=== PATIENT | male | born 1960 | race Caucasian/White ===

== ENCOUNTER → 2024-06-26 14:45 | Outpatient (REF) | payer BC, SELFPAY | LOC: HWRAD 14:45 | PROVIDERS: ATTENDING PHYSICIAN Specialist; FAMILY PHYSICIAN Family Medicine | DX: R80.1 Persistent proteinuria, unspecified (principal) | CPT/HCPCS: 76770 ==

== ENCOUNTER 2024-08-05 18:02 | Inpatient (IN) | payer BC, SELFPAY ==
[2024-08-05] VITALS (11 sets, daily range): BP systolic 147–212; BP diastolic 78–125; BMI 37.3
--- NOTE | 2024-08-05 13:56 | ED.GENMED ---
History of Present Illness
<Suzan Gar PA-C - Last Filed: 08/05/24 16:54>
General
Chief Complaint: Abdominal Symptoms
Source: patient and family
Exam Limitations: clinical condition
Time Seen by Provider: 08/05/24 13:26
Nursing documentation reviewed up to this point in time: agreed with
History of Present Illness
History of Present Illness:
pt is a 64 y/o M with h/o HTN, CAD with stent, IDDM
hiatal hernia
here iwth n/v x 8-10 episodes today
with epigastirc and ches tpain as well
he also had some loose stool but much less than vomitign episodes
noticed red blood spattering in the toilet
not large volume
pt says he doesn't know where it came from
he has not had any syncope, fever, chills
pt called his PCP and was told he could try zofran which he did but he was still vomiting so he came in
he had hospitalization in 2019 for similar complaint
had endoscopy which showed hital hernia without varices
pt didn't take his BP meds
Past History
<Suzan Gar PA-C - Last Filed: 08/05/24 16:54>
Past History
ED Past Medical History: CAD (1 stent '06), HTN, Hypercholesterolemia, IDDM (last A1c 11+ in 2019) and [place]
ED Past Surgical History: Cardiac (stent)
Social History
Tobacco: Non-smoker
Personal:
Living: with family
Review of Systems
<Suzan Gar PA-C - Last Filed: 08/05/24 16:54>
Review of Systems
Allergies reviewed?: Yes
All Other Systems: Not applicable
Phy Exam
<GRANT Escobedo Last Filed: 08/05/24 16:54>
Physical Exam
Physical Exam:
GENERAL: Alert , ill appearing, dry heaving
EYE: pupils equal and reactive
NECK: Supple
ENT: o/p clr, mmm.
CARDIAC: Regular rate and rhythm .
LUNGS: Clear breath sounds bilaterally, no acute respiratory distress, no wheezes/rales/rhonchi
ABDOMEN: Soft, without focal tenderness, no r/g, no cvat, normal bowel sounds
NEUROLOGICAL: Alert and oriented, no focal neuro deficits
SKIN: Warm and dry, skin intact.
purplish discoloration to face;
MUSCULOSKELETAL: No edema, well perfused. neg stuart's sign
PSYCH: Normal and appropriate interaction.
Course
<Suzan Gar PA-C - Last Filed: 08/05/24 16:54>
Orders/Labs/Results
Orders:
Orders
08/05/24 13:10
EKG [Electrocardiogram (*1)] Stat
Reason for Study: Abdominal Pain
08/05/24 13:11
EKG- Treatment ONCE
08/05/24 13:48
Ondansetron Injectable [Zofran] 4 mg IV NOW STA
08/05/24 13:49
Ondansetron Injectable [Zofran] 4 mg .ROUTE .STK-MED ONE
Pantoprazole [Protonix IV] 40 mg IV NOW STA
08/05/24 13:50
Cardiac Monitoring- Treatment ONCE
08/05/24 14:04
Diphenhydramine [Benadryl] 25 mg IV NOW STA
Metoclopramide [Reglan] 10 mg IV NOW STA
CR Chest Portable - 1 View Urgent
Comment:
Reason For Exam: vomiting, epgiastric pain
Reason Study Needs to be Portable: Unable to Transport
08/05/24 14:11
Complete Blood Count/With Diff Urgent
Comprehensive Metabolic Panel Urgent
Lipase Urgent
Troponin I Urgent
08/05/24 14:49
CT Abd/Pel (IV only)-DH only Urgent
Comment:
Reason For Exam: vomiting, epigstri pain, eval pancreatitis
08/05/24 15:45
Ondansetron Injectable [Zofran] 4 mg IV NOW STA
08/05/24 16:07
Lorazepam [Ativan] 1 mg IV NOW STA
08/05/24 16:49
Labetalol HCl [Trandate] 10 mg IV NOW STA
08/05/24 17:10
0.9% Sodium Chloride 1000 ml [Nss] 1,000 ml IV BOLUS
08/05/24 17:33
Admit/Transfer Patient As Directed
Co-Sign Provider:
Level of Care: Inpatient admission
Assign to:: Telemetry
Physician / Group: uriel
Diagnosis: Gastritis
Reason for Telemetry: Arrhythmia
Date to Stop Telemetry: 08/08/24
Time to Stop Telemetry: 11:00
Reason for Hospitalization: Gastritis/hematemesis
Expected length of stay greater than two midnights?: Yes
ELOS- Estimated Length of Stay in days: 2
I certify the patient meets the requirements for IP care: Yes
PRN Pain Medication Management As Directed
May give lesser potent ordered pain med per pt: Yes
preference::
Protocol:: Medication orders for pain may be administered in a
manner that supports deferring to patient preference
when the pt is:
- Requesting an ordered lesser potent pain medication.
Least to most potent pain medications are defined
as: acetaminophen < NSAID < tramadol < opioids
(morphine, oxycodone, hydromorphone).
- Requesting a lesser dose of the same medication IF
ORDERED.
- Requesting a less intrusive route of administration
if both routes are prescribed by the provider (PO <
IV).
08/05/24 17:34
Code Status As Directed
Resuscitation Status: Full Code
08/08/24 11:00
DC Protocol for Telemetry ONCE
Abnormal Lab Results
08/05/24
14:11
Absolute Neuts (auto) 7.2 H 10^3/uL
(1.4-6.5)
Absolute Lymphs (auto) 1.0 L 10^3/uL
(1.2-3.4)
Neutrophils % 84.8 H %
(42.2-75.2)
Lymphocytes % 11.8 L %
(20.5-51.1)
BUN 26 H mg/dl
(9-20)
Glucose 242 H mg/dl
(70-99)
Calcium 10.4 H mg/dl
(8.4-10.2)
ALT 66 H U/L
(0-50)
Lipase 342 H U/L
(23-300)
08/05/24 14:11
08/05/24 14:11
Vital Signs
Blood pressure: 168/113
Initial and Last Documented VS:
Initial Vital Signs
Temp Pulse Resp BP Pulse Ox
97.7 F 93 18 212/125 100
08/05/24 13:20 08/05/24 13:20 08/05/24 13:20 08/05/24 13:20 08/05/24 13:20
Last Documented Vital Signs
Temp Pulse Resp BP Pulse Ox
97.7 F 106 25 206/102 92
08/05/24 13:20 08/05/24 17:30 08/05/24 17:30 08/05/24 17:00 08/05/24 17:30
<Binh Aragon, DO - Last Filed: 08/05/24 17:42>
Orders/Labs/Results
Orders:
Orders
08/05/24 13:10
EKG [Electrocardiogram (*1)] Stat
Reason for Study: Abdominal Pain
08/05/24 13:11
EKG- Treatment ONCE
08/05/24 13:48
Ondansetron Injectable [Zofran] 4 mg IV NOW STA
08/05/24 13:49
Ondansetron Injectable [Zofran] 4 mg .ROUTE .STK-MED ONE
Pantoprazole [Protonix IV] 40 mg IV NOW STA
08/05/24 13:50
Cardiac Monitoring- Treatment ONCE
08/05/24 14:04
Diphenhydramine [Benadryl] 25 mg IV NOW STA
Metoclopramide [Reglan] 10 mg IV NOW STA
CR Chest Portable - 1 View Urgent
Comment:
Reason For Exam: vomiting, epgiastric pain
Reason Study Needs to be Portable: Unable to Transport
08/05/24 14:11
Complete Blood Count/With Diff Urgent
Comprehensive Metabolic Panel Urgent
Lipase Urgent
Troponin I Urgent
08/05/24 14:49
CT Abd/Pel (IV only)-DH only Urgent
Comment:
Reason For Exam: vomiting, epigstri pain, eval pancreatitis
08/05/24 15:45
Ondansetron Injectable [Zofran] 4 mg IV NOW STA
08/05/24 16:07
Lorazepam [Ativan] 1 mg IV NOW STA
08/05/24 16:49
Labetalol HCl [Trandate] 10 mg IV NOW STA
08/05/24 17:10
0.9% Sodium Chloride 1000 ml [Nss] 1,000 ml IV BOLUS
08/05/24 17:33
Admit/Transfer Patient As Directed
Co-Sign Provider:
Level of Care: Inpatient admission
Assign to:: Telemetry
Physician / Group: veldanda
Diagnosis: Gastritis
Reason for Telemetry: Arrhythmia
Date to Stop Telemetry: 08/08/24
Time to Stop Telemetry: 11:00
Reason for Hospitalization: Gastritis/hematemesis
Expected length of stay greater than two midnights?: Yes
ELOS- Estimated Length of Stay in days: 2
I certify the patient meets the requirements for IP care: Yes
PRN Pain Medication Management As Directed
May give lesser potent ordered pain med per pt: Yes
preference::
Protocol:: Medication orders for pain may be administered in a
manner that supports deferring to patient preference
when the pt is:
- Requesting an ordered lesser potent pain medication.
Least to most potent pain medications are defined
as: acetaminophen < NSAID < tramadol < opioids
(morphine, oxycodone, hydromorphone).
- Requesting a lesser dose of the same medication IF
ORDERED.
- Requesting a less intrusive route of administration
if both routes are prescribed by the provider (PO <
IV).
08/05/24 17:34
Code Status As Directed
Resuscitation Status: Full Code
08/08/24 11:00
DC Protocol for Telemetry ONCE
Abnormal Lab Results
08/05/24
14:11
Absolute Neuts (auto) 7.2 H 10^3/uL
(1.4-6.5)
Absolute Lymphs (auto) 1.0 L 10^3/uL
(1.2-3.4)
Neutrophils % 84.8 H %
(42.2-75.2)
Lymphocytes % 11.8 L %
(20.5-51.1)
BUN 26 H mg/dl
(9-20)
Glucose 242 H mg/dl
(70-99)
Calcium 10.4 H mg/dl
(8.4-10.2)
ALT 66 H U/L
(0-50)
Lipase 342 H U/L
(23-300)
08/05/24 14:11
08/05/24 14:11
Vital Signs
Initial and Last Documented VS:
Initial Vital Signs
Temp Pulse Resp BP Pulse Ox
97.7 F 93 18 212/125 100
08/05/24 13:20 08/05/24 13:20 08/05/24 13:20 08/05/24 13:20 08/05/24 13:20
Last Documented Vital Signs
Temp Pulse Resp BP Pulse Ox
97.7 F 106 25 206/102 92
08/05/24 13:20 08/05/24 17:30 08/05/24 17:30 08/05/24 17:00 08/05/24 17:30
<Suzan Gar PA-C - Last Filed: 08/05/24 16:54>
MDM/Problems Addressed
Differential Diagnosis Includes:
hyperemesis, alcohol withdrawal, gastrtitis, PUD, varices, dissection, pancreaitits
MDM/Problems Addressed:
64 y/o M with h/o previous hyperemesis episode 2019 here with n/v/d that started 6 am this morning
mostly vomiting, minimal diarrhea
may hav ehad some blood in the toilet, says, pt says he doesn't know
he castaneda had epigastric pain and ches tpain but wasn't sure if it was just from vomiting all day
had zofran at home and tried it without relief
pt has never had PUD, varices
he smokes marijuana but not daily
hypertensive but actively vomiting most of the time his BP is being taken
ekg nonischemic
abimael by ed attending
did not feel this was dissection; psimilar admission 2019 and they alos w/u with CTA dissection which was neg; ultimately ended up bieing vomiting related to gastropareiss vs cannabis;
pt persistently vomits despite multiple rounds meds here
continues to be hypertensive
will now treat bp with labetalol
lipase elevated
pending CT
<Suzan Gar PA-C - Last Filed: 08/05/24 16:54>
*Critical Care Note
Total Time (30-74mins, 75-104mins- exclusive of procedures): Not Applicable
ED Attending Note
<Suzan Gar PA-C - Last Filed: 08/05/24 16:54>
-
Portions of this chart may have been created with voice recognition software.� Occasional wrong word or��sound alike� substitutions may have occurred due to the inherent limitations of voice recognition software.
<Binh Aragon DO - Last Filed: 08/05/24 17:42>
ED Attending Note
Patient seen and examined by attending physician: Yes
I performed the substantive portion of visit, reviewed & personally made and approve the management plan that is documented in note by myself or LAURA.: Yes
ED Attending Note:
64-year-old male who presents with epigastric abdominal pain and vomiting. Has had a similar complaint and presentation some years ago. On my evaluation patient is vomiting. Found to be hypertensive as well. Exam: Bilious vomiting noted during
exam. Mild epigastric tenderness. No respiratory distress. Assessment plan: Check labs, CT, treat with antiemetics and reassess
Discharge Plan
Departure
Patient Disposition: Admit
Date of Disposition: 08/05/24
Time of Disposition: 16:50
Admit to: Telemetry
Presentation/result/management discussed w/ accepting MD/DO: Hospitalist
Condition: Fair
Covid-19: Not Applicable
Discharge Problem:
Hypertensive urgency, Vomiting, Gastritis
Prescriptions:
No Action
aspirin 325 MG tablet,delayed release (DR/EC)
325 mg PO DAILY
Patient Comments:
takes ecotrin
metformin 1,000 MG tablet
1,000 mg PO BID
Patient Comments:
NOTEtoday 06/02/2013 --pt had ct with iv dye---will need to hold for 2 days
rosuvastatin 20 MG tablet
20 mg PO DAILY
lisinopril 40 MG tablet
40 mg PO DAILY Qty: 30 0RF
insulin detemir U-100 [Levemir FlexTouch U100 Insulin] 300 UNIT/3 ML insulin pen
42 unit SC BID Qty: 30 0RF
amlodipine 10 MG tablet
10 mg PO DAILY Qty: 30 0RF
pantoprazole 40 MG tablet,delayed release (DR/EC)
40 mg PO DAILY Qty: 30 0RF
Referrals:
Edgardo Power DO [Family Provider] -
Interventions
Interventions:
*Risk Screen - Suicide Last Done: 08/05/24 13:20
*General Assessment Last Done: 08/05/24 13:20
*Neglect/Abuse Screening Last Done: 08/05/24 13:20
ED- Fall Risk Assessment Last Done: 08/05/24 14:30
*ED COVID-19 Vaccine History Last Done: 08/05/24 14:29
MS-Gdldxr-Rzqbvzegyf Assessment Last Done: 08/05/24 14:30
Discharge Date and Time
Print Language: MALAGASY
[2024-08-05] MEDS: BENADRYL 25 MG IV (14:09)
[2024-08-05] MEDS: PROTONIX IV 40 MG IV ×2 (14:10→20:47)
[2024-08-05] MEDS: REGLAN 10 MG IV ×2 (14:10→20:03)
[2024-08-05 14:25] LABS: % Basophils 0.4 % (0-2); % Eosinophils 0.1 % (0-6); % Immature Granulocytes 0.4 % (0-0.5); % Lymphocytes 11.8 % (20.5-51.1); % Monocytes 2.5 % (1.7-9.3); % Neutrophils 84.8 % (42.2-75.2); Absolute Monocytes 0.2 10^3/uL (0.1-0.6); Absolute Neutrophils 7.2 10^3/uL (1.4-6.5); Hematocrit 43.9 % (39.0-52.0); Hemoglobin 14.9 g/dL (13.0-18.0); Mean Corp Hgb Conc. 33.9 g/dL (33.0-37.0); Mean Corpuscular Hgb 30.2 pg (27.0-31.0); Mean Platelet Volume 10.3 fL (7.4-10.4); Nucleated Red Blood Cells % 0 % (-); Platelet Count 214 10^3/uL (130-400); Red Blood Cell Count 4.93 10^6/uL (4.70-6.10); Red Cell Dist. Width 12.6 % (11.5-14.5); White Blood Cell Count 8.4 10^3/uL (4.8-10.8)
[2024-08-05 14:38] LABS: ALT (SGPT) 66 U/L (0-50); AST (SGOT) 47 U/L (17-59); Albumin 4.7 g/dl (3.5-5.0); Alkaline Phosphatase 51 U/L (38-126); Blood Urea Nitrogen 26 mg/dl (9-20); Calcium 10.4 mg/dl (8.4-10.2); Carbon Dioxide 23 mmol/L (22-30); Chloride 103 mmol/L (98-107); Estimated Creatinine Clearance > 125 ml/min; Glucose 242 mg/dl (70-99); Lipase 342 U/L (23-300); Potassium 4.8 mmol/L (3.5-5.1); Sodium 140 mmol/L (135-145); Total Bilirubin 0.8 mg/dl (0.2-1.3); Total Protein 7.5 g/dl (6.3-8.2); eGFR > 60.00
[2024-08-05 14:53] LABS: Troponin I < 0.012 ng/ml
[2024-08-05] MEDS: ZOFRAN 4 MG IV (15:56)
[2024-08-05] MEDS: ATIVAN 1 MG IV (16:18)
[2024-08-05] MEDS: NSS 1000 IV ×2 (17:13→20:46)
[2024-08-05] MEDS: TRANDATE 10 MG IV (17:13)
--- NOTE | 2024-08-05 17:47 | HPS.HSE ---
Family Physician
-
Family Physician: Edgardo Power
Chief Complaint
-
vomiting
History of Present Illness
64-year-old male past medical history of CAD with stent, hypertension, diabetes, hiatal hernia, presenting with 8-10 episodes of vomiting with nausea today. He has epigastric and chest pain as well. He had diarrhea today. noticed blood in
the toilet she thinks it was probably from the vomit but she is not sure if it is from the diarrhea. Patient was very fatigued today and was huffing as if he was short of breath.
Patient does admit to using marijuana sometimes. He was not able to tell me when he last used.
He denies any dizziness, passing out, fevers or chills.
Patient was admitted in 2019 for intractable vomiting and hiccups. He underwent EGD which was unremarkable and gastric emptying study that was unremarkable.
Medical History
Past Medical History
Past Medical History: Reports Other (CAD with stent, hypertension, diabetes, hiatal hernia)
Past Surgical History: Reports None
Social History
Tobacco: Non-smoker
Alcohol: Occasional
Drug: Marijuana
Family History
Family History: Not pertinent
Allergies / Home Medications
Allergies reflects when Allergies were last updated in [employer].
Home Medications with original date entered in [employer]
Allergy/Medication List:
Allergies
Allergy/AdvReac Type Severity Reaction Status Date / Time
venom-honey bee Allergy STINGS-HIVE Verified 08/05/24 13:19
S
Home Medications
aspirin 325 mg tablet,delayed release 325 mg PO DAILY 06/02/13
metformin 1,000 mg tablet 1,000 mg PO BID 06/02/13
rosuvastatin 20 mg tablet 20 mg PO DAILY 04/06/19
insulin detemir U-100 100 unit/mL (3 mL) subcutaneous pen (Levemir FlexTouch U-100 Insulin) 42 unit (0.42 mL) SC BID ##30 04/08/19
lisinopril 40 mg tablet 40 mg PO DAILY #30 tabs 04/08/19
amlodipine 10 mg tablet 10 mg PO DAILY ##30 04/10/19
pantoprazole 40 mg tablet,delayed release 40 mg PO DAILY ##30 04/10/19
Review of Systems
-
History Source: Patient
A 12 point ROS was completed and negative except as noted: Yes
Constitutional: Reports No Symptoms
EENT: Reports No Symptoms
Respiratory: Reports No Symptoms
Cardiac: Reports No Symptoms
Abdomen/GI: Reports See HPI
: Reports No Symptoms
Musculoskeletal: Reports No Symptoms
Skin: Reports No Symptoms
Neurological: Reports No Symptoms
Endocrine: Reports No Symptoms
Hematologic/Lymphatic: Reports No Symptoms
Psych: Reports No Symptoms
Physical Exam
Vital Signs
Vital Signs
Temp Pulse Resp BP Pulse Ox
97.7 F 106 25 206/102 92
08/05/24 13:20 08/05/24 17:30 08/05/24 17:30 08/05/24 17:00 08/05/24 17:30
Physical Exam
General: Well Developed, Well Nourished and No Apparent Distress
HEENT: NormoCephalic, Moist mucous membranes and Atraumatic
Respiratory: Clear
Cardiac: S1/S2 and Regular Rhythm; No Murmur or Rub
GI: Soft, Non Tender, Non Distended and Normal Bowel Sounds; No Organomegaly
Rectal: Deferred by Provider
Musculoskeletal: No Clubbing, No Cyanosis and No Edema
Skin: No Rash
Neuro: Nonfocal/grossly intact
Laboratory Results
-
08/05/24 14:11
08/05/24 14:11
Laboratory Results
Total Bilirubin 0.8 mg/dl (0.2-1.3) 08/05/24 14:11
AST 47 U/L (17-59) 08/05/24 14:11
ALT 66 U/L (0-50) H 08/05/24 14:11
Alkaline Phosphatase 51 U/L (38-126) 08/05/24 14:11
Troponin I < 0.012 ng/ml 08/05/24 14:11
Lipase 342 U/L (23-300) H 08/05/24 14:11
Data Reviewed
-
Lab Data: Labs Reviewed by me
Old Records: Reviewed
Impression/Plan
-
IMPRESSION:
PLAN:
# Intractable vomiting with likely hematemesis likely Chrystal-Elliott tear from possible underlying marijuana hyperemesis versus gastroparesis versus acute gastritis
# History of hiatal hernia
-Lipase 340
-CT abdomen pelvis shows no acute abnormality
-IV fluids
-Protonix 40 twice daily
-N.p.o.
-Reglan PRN
-jay snot drink alcohol significantly as per
-GI consulted
# Hypertensive urgency
-IV labetalol given
-PRN hydralazine
-Continue lisinopril
-Continue metoprolol
CAD with history of stent
-Continue statin
-Hold aspirin
Essential hypertension
-Continue amlodipine
-Continue lisinopril
Type 2 diabetes
-Reduce Lantus from 40 to 21 units
-Hold metformin
-Insulin sliding scale
Full code
DVT prophylaxis�SCDs
N.p.o.
[2024-08-05] MEDS: APRESOLINE 10 MG IV (19:24)
[2024-08-05 19:34] LABS: Glucose - Point of Care 213 mg/dl (70-99)
[2024-08-05] MEDS: NSS (PRESERVATIVE FREE) 10 ML IV (20:47)
[2024-08-05 21:34] LABS: Glucose - Point of Care 195 mg/dl (70-99)
[2024-08-05] MEDS: LANTUS 0.21 UNITS SC (22:42)
[2024-08-05] MEDS: LOPRESSOR 5 MG IV (23:39)
[2024-08-06] VITALS (9 sets, daily range): BP systolic 118–188; BP diastolic 59–97; BMI 37.3
[2024-08-06] MEDS: ZOFRAN 4 MG IV ×3 (00:51→19:31)
[2024-08-06] MEDS: APRESOLINE 10 MG IV (03:54)
[2024-08-06] MEDS: REGLAN 10 MG IV ×3 (04:01→22:49)
[2024-08-06] MEDS: MORPHINE SULFATE 2 MG IV ×2 (06:18→22:41)
[2024-08-06 07:33] LABS: % Basophils 0.2 % (0-2); % Immature Granulocytes 0.5 % (0-0.5); % Monocytes 6.6 % (1.7-9.3); % Neutrophils 84.7 % (42.2-75.2); Absolute Immature Granulocytes 0.1 10^3/uL (0-0.05); Absolute Lymphocytes 1.1 10^3/uL (1.2-3.4); Absolute Monocytes 0.9 10^3/uL (0.1-0.6); Absolute Neutrophils 11.3 10^3/uL (1.4-6.5); Hematocrit 40.4 % (39.0-52.0); Hemoglobin 13.4 g/dL (13.0-18.0); Mean Corp Hgb Conc. 33.2 g/dL (33.0-37.0); Mean Corpuscular Hgb 30.5 pg (27.0-31.0); Mean Corpuscular Volume 91.8 fL (80.0-94.0); Mean Platelet Volume 10.8 fL (7.4-10.4); Nucleated Red Blood Cells % 0 % (-); Platelet Count 211 10^3/uL (130-400); Red Cell Dist. Width 13.2 % (11.5-14.5); White Blood Cell Count 13.3 10^3/uL (4.8-10.8)
[2024-08-06 08:05] LABS: Glucose - Point of Care 224 mg/dl (70-99)
[2024-08-06 08:06] LABS: ALT (SGPT) 47 U/L (0-50); AST (SGOT) 29 U/L (17-59); Alkaline Phosphatase 41 U/L (38-126); Blood Urea Nitrogen 25 mg/dl (9-20); Calcium 9.2 mg/dl (8.4-10.2); Carbon Dioxide 21 mmol/L (22-30); Chloride 104 mmol/L (98-107); Estimated Creatinine Clearance > 125 ml/min; Glucose 213 mg/dl (70-99); Potassium 3.9 mmol/L (3.5-5.1); Sodium 140 mmol/L (135-145); Total Bilirubin 0.4 mg/dl (0.2-1.3); Total Protein 6.7 g/dl (6.3-8.2); eGFR > 60.00
[2024-08-06] MEDS: LANTUS 0.14 UNITS SC ×2 (08:59→22:42)
[2024-08-06] MEDS: CRESTOR 40 MG PO (09:00)
[2024-08-06] MEDS: PROTONIX IV 40 MG IV ×2 (09:00→19:34)
[2024-08-06] MEDS: NSS (PRESERVATIVE FREE) 10 ML IV ×2 (09:00→19:34)
[2024-08-06] MEDS: NSS 1000 IV (09:04)
[2024-08-06] MEDS: ZESTRIL 40 MG PO (09:09)
[2024-08-06 09:16] LABS: Glycohemoglobin (HgbA1c) 6.7 % (4.0-5.6)
[2024-08-06] MEDS: LANTUS SC (09:18)
--- NOTE | 2024-08-06 10:24 | CON.GI ---
Consultation
-
Date/Time Consultation Requested: 08/05,20:00
Date/Time Consultation Performed: 08/06,10:15
Requesting Provider: Iman Turcios
Performing Provider: Claudia Whiteside
Reason for Consultation: Gastritis
Medical History
Chief Complaint / HPI
Chief Complaint: Nausea and Vomiting-1day
History of Present Illness:
Patient is a 64 year old male with past medical history of Essential hypertension,IDDM,CAD with stent placed in 2005 and hiatal hernia. He regularly drinks two beers a day on most days and his last drink was on Saturday 08/04 and smoked a joint 2
days ago.He was in his usual state of health 2 days ago when he started vomiting repeatedly and was not able to tolerate anything including fluids.He had about 8-10 episodes of non -projectile vomiting,that contained food particles and was yellowish
brown in color with some specks of blood noticed by his .He also had dry heaves.The patient feels it was due to the bad half and half milk that he used for making coffee.He also had a few episodes of loose stools but vomiting was the main
issue.The patient did not notice any melena or fresh blood in stool.He waited for a few hours but he was not tolerating anything and he started to feel a little lightheaded so he came to the emergency department. A CT abd/pelvis done in ER was
within normal limits.
He denies any fever, loss of consciousness, weight loss, appetite changes,travel history, dine out, previous liver or stomach issues,use of any NSAIDS and anticoagulants. He is on chronic aspirin 325 mg daily for his coronary artery disease.
He did not use any painkillers, Pepcid, antacid, omeprazole to treat the pain.
He had similar signs and symptoms in the past, and endoscopy was done in 2019 and he was diagnosed with a hiatal hernia. He has diabetes and did undergo gastric emptying scan in 2019 which also came back normal. He did not had his screening
colonoscopy and he denies any liver or stomach issues before this.
He used to smoke 1 pack of cigarettes for 20-25 years and quit in 2005 after he had the stent placement for coronary artery disease, he drinks 2 beers on most days and his last drink was 2 days ago, he smokes marijuana and he smoked a joint 2 days
ago.
Note; patient had a blood pressure of 206/102 at the time of presentation in the emergency. He is on lisinopril and amlodipine at home which he says he takes regularly but does not monitor his blood pressure.
Patient's blood pressure managed with labetalol 10 mg IV 6 hourly as needed and lisinopril 40 mg daily.
Past Medical History
Past Medical History: CAD (Stent placed in 2005), HTN, Hypercholesterolemia, IDDM and Other (hiatal hernia)
Social History
Tobacco: Former Smoker (Smoked 20-25 years, quit in 2005)
Alcohol: Daily (On most days 2 beers)
Drug: Marijuana (Smoked a joint 2 days ago)
Personal:
Living: With Family
Family History
Family History: Reviewed & Not Pertinent
Allergies / Home Medications
Allergy/AdvReac Type Severity Reaction Status Date / Time
venom-honey bee Allergy STINGS-HIVE Verified 08/05/24 13:19
S
�Medication �Instructions �Recorded
aspirin 325 mg tablet,delayed 325 mg PO DAILY 06/02/13
release
metformin 1,000 mg tablet 1,000 mg PO BID 06/02/13
rosuvastatin 20 mg tablet 40 mg PO DAILY 04/06/19
insulin detemir U-100 100 unit/mL 42 unit (0.42 mL) SC BID ##30 04/08/19
(3 mL) subcutaneous pen (Levemir
FlexTouch U-100 Insulin)
lisinopril 40 mg tablet 40 mg PO DAILY #30 tabs 04/08/19
Humalog Pen 1 dose SC AC 08/05/24
Mounjaro 7.5 mg SC WEEKLY 08/05/24
ezetimibe 10 mg PO DAILY 08/05/24
Review of Systems
-
All other systems: A 12 pt ROS was Negative except as stated above in HPI
Vital Signs
Temp Pulse Resp BP Pulse Ox
99.0 F 103 16 159/81 96
08/06/24 07:25 08/06/24 09:09 08/06/24 07:25 08/06/24 09:09 08/06/24 07:25
Physical Exam
Exam
General: Well Developed, Comfortable and Other (Unkempt)
HEENT: Anicteric
Respiratory: Clear and Other
Cardiac: S1/S2 and Regular Rhythm
GI: Soft, Non Tender and Normal Bowel Sounds
Rectal: Deferred by Provider
Genito-urinary: No Costovertebral Tender
Musculoskeletal: No Clubbing and No Edema
Skin: Warm, Dry and Other (Facial plethora)
Neuro: Awake, Alert and No Motor Deficits
Hematologic/Lymphatic: No Lymphadenopathy
Psych: Calm
Results
WBC 13.3 10^3/uL (4.8-10.8) H 08/06/24 06:59
Hgb 13.4 g/dL (13.0-18.0) 08/06/24 06:59
Hct 40.4 % (39.0-52.0) 08/06/24 06:59
MCV 91.8 fL (80.0-94.0) 08/06/24 06:59
Plt Count 211 10^3/uL (130-400) 08/06/24 06:59
Absolute Neuts (auto) 11.3 10^3/uL (1.4-6.5) H 08/06/24 06:59
Sodium 140 mmol/L (135-145) 08/06/24 06:59
Potassium 3.9 mmol/L (3.5-5.1) 08/06/24 06:59
Chloride 104 mmol/L (98-107) 08/06/24 06:59
Carbon Dioxide 21 mmol/L (22-30) L 08/06/24 06:59
BUN 25 mg/dl (9-20) H 08/06/24 06:59
Creatinine 0.7 mg/dL (0.7-1.3) 08/06/24 06:59
Calcium 9.2 mg/dl (8.4-10.2) 08/06/24 06:59
Total Bilirubin 0.4 mg/dl (0.2-1.3) 08/06/24 06:59
AST 29 U/L (17-59) 08/06/24 06:59
ALT 47 U/L (0-50) 08/06/24 06:59
Alkaline Phosphatase 41 U/L (38-126) 08/06/24 06:59
Lipase 342 U/L (23-300) H 08/05/24 14:11
Diagnostic Image Results:
Prior GI Procedures:Gastric emptying nuclear medicine 2019-within normal limits
EGD: 2019-hiatal hernia
Colonoscopy:
Assessment / Plan
-
IMPRESSION
Patient is a 64-year-old male with past medical history of coronary artery disease, essential hypertension, insulin-dependent diabetes mellitus, hiatal hernia who presented with intractable vomiting that was not projectile, contained food particles
and had some specks of blood. There was associated lightheadedness. Differential diagnosis includes Gastroenteritis,cholecystitis, Chrystal-Elliott tear, gastritis, peptic ulcer disease.
ASSESSMENT
Vomiting secondary to gastroenteritis/gastritis/PUD?
Diarrhea
Insulin-dependent diabetes mellitus
Essential hypertension
Coronary artery disease
Hiatal hernia
PLAN
Vomiting secondary to gastroenteritis/gastritis/PUD?MW-tear?
8-10 episodes of vomiting yesterday
Denisa Blatchford score 4
Possible Chrystal-Elliott tear from marijuana hyperemesis?
Possible gastroenteritis from bad [id number] milk
No melena, syncope, liver disease, heart failure
CT abdomen/pelvis within normal limits
Currently just has dry heaves and is sipping liquids
No active bleed
Switch to clear liquid diet
Advance to tolerable diet
N.p.o. at midnight
PT/INR
Esophageal gastroduodenoscopy tomorrow
Continue aspirin
Continue omeprazole 40 mg twice daily
Diarrhea
4-5 episodes of loose stools yesterday
No episodes today
Patient is on IV fluids
Introduce clear liquids and advance diet
EGD tomorrow
Insulin-dependent diabetes mellitus
Uncontrolled, HbA1c 6.7
Monitor blood sugar levels
Give insulin according to sliding scale in addition to Lantus
Optimize glucose control
Essential hypertension
Had hypertensive urgency (systolic blood pressure greater than 200)
Patient compliant to home medications
Continue monitoring blood pressure
Optimize blood pressure
Coronary artery disease
Continue home dose of aspirin and statin
Hiatal hernia
Asymptomatic
CODE STATUS-full code
DVT prophylaxis-sequential compression devices
N.p.o. at midnight for EGD tomorrow
-
-
Thank you for consultation and allowing me to participate in the patient's care. Please call the information security architect GI physician during the after hours with any questions or concerns.
[2024-08-06 11:11] LABS: INR 1.06; PT 14.1 Sec (11.4-14.6)
--- NOTE | 2024-08-06 11:38 | W.PN.HOSP.TC ---
Today's Communication/Plan
-
started clears
hold further IVF
Monitor BP
GI recs
Assessment / Plan
Assessment / Plan
# Intractable vomiting with likely hematemesis likely Chrystal-Elliott tear from possible underlying marijuana hyperemesis versus gastroparesis versus acute gastritis
# History of hiatal hernia
#Leukocytosis ?reactive. monitor for now .afebrile.
-Lipase 340
-CT abdomen pelvis shows no acute abnormality
-IV fluids
-Protonix 40 twice daily
-clears with plan for NPO PMN for ?EGD
-Reglan PRN
-?S/E from mounjaro
-GI consulted
# Hypertensive urgency
-IV labetalol prn
-Continue lisinopril
-if persistently elevated start additional agent
CAD with history of stent
-Continue statin
-Hold aspirin
HLD
-Cont statin/ezetimibe
Type 2 diabetes
-Reduce Lantus from 40 to 14 units
-Hold metformin
-Insulin sliding scale. A1C 6.7
Morbid obesity due to excess calories
-affects all aspect of medical care
-health counselor on weight loss post recovering from acute disease
Full code
DVT prophylaxis�SCDs
d/w with spouse at bedside in details
Anticipated Discharge: 24 - 48 hours
Subjective/Interval History
-
Date of Service: August 06, 2024
States of mild epigastric pain
passing flatulence
no diarrhea
feeling better
Objective Data
-
Labs:
Laboratory Results
08/06/24 08/06/24
06:59 10:48
WBC 13.3 H
Hgb 13.4
Hct 40.4
Plt Count 211
PT 14.1
INR 1.06
Sodium 140
Potassium 3.9
Chloride 104
Carbon Dioxide 21 L
BUN 25 H
Creatinine 0.7
Glucose 213 H
Calcium 9.2
Total Bilirubin 0.4
AST 29
ALT 47
Alkaline Phosphatase 41
Vital Signs:
Vital Signs
Temp Pulse Resp BP Pulse Ox
99.0 F 103 16 159/81 96
08/06/24 07:25 08/06/24 09:09 08/06/24 07:25 08/06/24 09:09 08/06/24 07:25
I&O
08/05/24 08/06/24 08/07/24
06:59 06:59 06:59
Intake Total 1760 / 1760
Output Total 475 / 475
Balance 1285 / 1285
Physical Exam
-
General: No Apparent Distress, Morbidly Obese and Other (looks older than stated age )
HEENT: Normocephalic, Atraumatic and Moist Mucous Membranes
Respiratory: Clear to Auscultation
Cardiac: Regular Rhythm and S1/S2; Negative Murmur, Rub or Gallop
GI: Soft, Nontender, Nondistended and Normal Bowel Sounds; Negative Organomegaly
Rectal: Deferred by Provider
Musculoskeletal: No Clubbing, No Cyanosis and No Edema
Skin: Warm; Negative Rash
Neuro: Awake, Alert, Oriented, AO x 3, No Motor Deficits and Nonfocal/Grossly Intact
Psych: Calm
Data Reviewed
-
Total Time Spent with Patient (in minutes): 55
--- NOTE | 2024-08-06 12:06 | CM ---
CM met with pt and spouse/Sharita bedside
They resides with their 34/yo dtr in a 2[address] with 3 K[address]
Full flight to 2nd floor
Pt is independent with his ADLs- drives+, no DMEs
Works FT as a power crane operator
Pt has a working dexcom-like monitor
Denies financial insecurities
PCP- Edgardo Power
Rx- [facility]
Discharge Disposition- home, no needs anticipated
[2024-08-06] MEDS: ASPIRIN ENTERIC COATED 325 MG PO (13:14)
[2024-08-06 13:19] LABS: Glucose - Point of Care 158 mg/dl (70-99)
[2024-08-06] MEDS: NOVOLOG FLEXPEN-LOW RESISTANCE 1 UNITS SC ×2 (13:29→18:35)
[2024-08-06] MEDS: NOVOLOG FLEXPEN-LOW RESISTANCE SC (16:50)
[2024-08-06] MEDS: TRANDATE 10 MG IV ×2 (17:30→22:47)
[2024-08-06 18:01] LABS: Glucose - Point of Care 174 mg/dl (70-99)
[2024-08-06 22:07] LABS: Glucose - Point of Care 182 mg/dl (70-99)
--- NOTE | 2024-08-06 23:41 | W.PN.UPDATE ---
Update Note
Progress Note Update
pt with bp 180s/90s
labetalol iv ordered q6h prn--> will change to q4h prn
according to external summary he looks like he may be taking metoprolol er 50mg bid.
RN asked pt but he does not know his meds off hand. He will check with in am.
[2024-08-07] VITALS (15 sets, daily range): BP systolic 138–208; BP diastolic 70–115
[2024-08-07 00:17] LABS: Glucose - Point of Care 161 mg/dl (70-99)
[2024-08-07] MEDS: NOVOLOG FLEXPEN-LOW RESISTANCE 1 UNITS SC ×4 (00:21→17:29)
[2024-08-07] MEDS: LOPRESSOR 5 MG IV ×2 (00:39→06:08)
[2024-08-07] MEDS: MAALOX 30 ML PO (01:23)
[2024-08-07] MEDS: PEPCID 20 MG IV (02:09)
[2024-08-07] MEDS: ZOFRAN 4 MG IV ×2 (02:10→15:30)
[2024-08-07] MEDS: TRANDATE 10 MG IV ×3 (02:21→22:42)
[2024-08-07] MEDS: MORPHINE SULFATE 2 MG IV ×4 (02:21→21:55)
--- NOTE | 2024-08-07 03:27 | PTCARENOTE ---
Pt with high BP from start of shift, 190/100's. PRN labetalol given. Rechecked within an hour and BP 200/110, 93. WIRE TINNER aware, 5mg IV Lopressor given, BP unchanged. Pt complaining of epigastric pain, indigestion and hiccups, when asked to describe
epigastric pain , pt stated 'feels like pressure', morphine PRN given. WIRE TINNER made aware. EKG obtained and results w/o changes from adm EKG. Pepcid and Maalox given with + effect. BP remains high on the 190/100's, epigastric pain and hiccups resolved.
repair cameraman WIRE TINNER made aware again.
[2024-08-07 06:27] LABS: Glucose - Point of Care 179 mg/dl (70-99)
[2024-08-07] MEDS: NSS (PRESERVATIVE FREE) 10 ML IV ×2 (06:35→19:50)
[2024-08-07] MEDS: PROTONIX IV 40 MG IV ×2 (06:35→19:50)
[2024-08-07 06:45] LABS: % Basophils 0.3 % (0-2); % Eosinophils 0.1 % (0-6); % Immature Granulocytes 0.5 % (0-0.5); % Lymphocytes 10.4 % (20.5-51.1); % Monocytes 6.6 % (1.7-9.3); % Neutrophils 82.1 % (42.2-75.2); Absolute Immature Granulocytes 0.1 10^3/uL (0-0.05); Absolute Lymphocytes 1.2 10^3/uL (1.2-3.4); Absolute Monocytes 0.8 10^3/uL (0.1-0.6); Absolute Neutrophils 9.4 10^3/uL (1.4-6.5); Hematocrit 42.2 % (39.0-52.0); Hemoglobin 13.9 g/dL (13.0-18.0); Mean Corp Hgb Conc. 32.9 g/dL (33.0-37.0); Mean Corpuscular Volume 90.9 fL (80.0-94.0); Mean Platelet Volume 10.6 fL (7.4-10.4); Nucleated Red Blood Cells % 0 % (-); Platelet Count 211 10^3/uL (130-400); Red Blood Cell Count 4.64 10^6/uL (4.70-6.10); Red Cell Dist. Width 13.1 % (11.5-14.5); White Blood Cell Count 11.5 10^3/uL (4.8-10.8)
[2024-08-07] MEDS: ZESTRIL 40 MG PO (06:45)
[2024-08-07 07:13] LABS: ALT (SGPT) 40 U/L (0-50); AST (SGOT) 30 U/L (17-59); Alkaline Phosphatase 40 U/L (38-126); Blood Urea Nitrogen 21 mg/dl (9-20); Calcium 8.9 mg/dl (8.4-10.2); Carbon Dioxide 23 mmol/L (22-30); Chloride 103 mmol/L (98-107); Estimated Creatinine Clearance > 125 ml/min; Glucose 187 mg/dl (70-99); Potassium 4.1 mmol/L (3.5-5.1); Sodium 139 mmol/L (135-145); Total Bilirubin 0.5 mg/dl (0.2-1.3); Total Protein 6.8 g/dl (6.3-8.2); eGFR > 60.00
--- NOTE | 2024-08-07 07:30 | PTCARENOTE ---
BP remains high. Pt asymtomatic. Lisinopril 40 mg scheduled for 0800 given at 0645.
[2024-08-07] MEDS: APRESOLINE 10 MG IV (07:52)
[2024-08-07] MEDS: ZETIA 10 MG PO (07:52)
[2024-08-07] MEDS: PROCARDIA XL (EXTENDED RELEASE) 30 MG PO ×2 (07:52→15:25)
[2024-08-07] MEDS: CRESTOR 40 MG PO (07:52)
[2024-08-07] MEDS: ASPIRIN ENTERIC COATED 325 MG PO (07:52)
[2024-08-07] MEDS: LANTUS 0.14 UNITS SC ×2 (07:52→21:56)
--- NOTE | 2024-08-07 08:56 | W.PN.GI.CBS2 ---
Addendum entered and electronically signed by Jose Patel MD 08/07/24 10:27:
I saw and examined the patient.
The ASSISTANT PRINCIPAL's note was reviewed and I agree with the note.
c/o hiccups with dry heaving - no vomiting . uncontrolled BP since admission . repeat lipase normal. Liver test - normal.
- will hold off on EGD for now. Timing to be determined later this week - inpatient vs outpatient
- clear liquid diet and advance as tolerated
- follow Obstruction series
- continue PPI
- hold monjaro
Original Note:
Today's Communication / Plan
-
Pt with marked HTN this am to 200's overnight cannot Do EGD today despite multiple medication overnight -- will need optimization per medical team
with continued hiccups and dry heaves will check follow up obstruction series with elevated lipase to check for obstructive process
ideally eventual contrast study but pt states cannot tolerate contrast at this time
cont NPO
add repeat lipase as some elevation on admission
last dose Monjaro was Tuesday
ok fot Continue aspirin
Continue Protonix 40 mg twice daily
no further diarrhea
HbA1c 6.7 Optimize glucose control
Assessment / Plan
-
IMPRESSION
Patient is a 64-year-old male with past medical history of coronary artery disease, essential hypertension, insulin-dependent diabetes mellitus, hiatal hernia who presented with intractable vomiting that was not projectile, contained food particles
and had some specks of blood. Pt also noted with hiccups. There was associated lightheadedness and HTN urgency noted on admission. prior normal GE scan in 2019
08/05/24 CT A/p with IV contrast
1. No significant acute abnormality identified in the abdomen or pelvis, as described above.
ASSESSMENT
Vomiting secondary to gastroenteritis/gastritis/PUD/ HH related/obstructive process, Cannibis vs other
Diarrhea
hiccups
elevated lipase on admission
HTN urgency with uncontrolled BP during admission
Insulin-dependent diabetes mellitus
CT 2019 and 2023 with finding of chronic pancreatitis
Coronary artery disease
Hiatal hernia
fatty liver
PLAN
Pt with marked HTN this am to 200's overnight cannot Do EGD today despite multiple medication overnight -- will need optimization per medical team
with continued hiccups and dry heaves will check follow up obstruction series with elevated lipase to check for obstructive process
ideally eventual contrast study but pt states cannot tolerate contrast at this time
cont NPO
add repeat lipase as some elevation on admission
last dose was Tuesday
ok fot Continue aspirin
Continue Protonix 40 mg twice daily
no further diarrhea
HbA1c 6.7 Optimize glucose control
Subjective
Subjective
Date of Service: August 07, 2024
still with hiccups and nausea with dry heaves with sudden onset since Tuesday
Objective
Data Reviewed
Laboratory Data:
Laboratory Results
08/07/24 06:24
08/07/24 06:24
Laboratory Results
PT 14.1 Sec (11.4-14.6) 08/06/24 10:48
INR 1.06 08/06/24 10:48
Total Bilirubin 0.5 mg/dl (0.2-1.3) 08/07/24 06:24
AST 30 U/L (17-59) 08/07/24 06:24
ALT 40 U/L (0-50) 08/07/24 06:24
Alkaline Phosphatase 40 U/L (38-126) 08/07/24 06:24
Lipase 342 U/L (23-300) H 08/05/24 14:11
Vital Signs and I&O:
Vital Signs
Temp Pulse Resp BP Pulse Ox
98.3 F 75 20 208/114 99
08/07/24 08:00 08/07/24 08:00 08/07/24 08:00 08/07/24 08:10 08/07/24 08:00
I&O
08/06/24 08/07/24 08/08/24
06:59 06:59 06:59
Intake Total 1760 / 1760 480 / 480 350 / 350
Output Total 475 / 475 650 / 650 500 / 500
Balance 1285 / 1285 -170 / -170 -150 / -150
Physical Exam
Physical Exam
HEENT: Anicteric, Moist mucous membranes and Other (pt appears uncomfortable with continued hiccups )
Cardiology: Normal Sinus Rhythm
Pulmonary: Clear
GI: Soft, Distended and Tender (epigastric )
Extremities: No Edema
Neuro: Non Focal
[2024-08-07 09:50] LABS: Lipase 49 U/L (23-300)
--- NOTE | 2024-08-07 10:20 | CM ---
Reviewed the chart notes. Per notes, EGD cancelled for today due to high BP. Patient continues with being NPO. EGD when medically stable. CM continues to be available to patient/family and is monitoring medical plan for needs at discharge.
Plan: Discharge to home when medically stable. No anticipated needs identified at this time.
[2024-08-07] MEDS: REGLAN 10 MG IV ×2 (10:39→17:28)
--- NOTE | 2024-08-07 11:05 | W.PN.HOSP.TC ---
Today's Communication/Plan
-
Monitor BP
AXR pending
PRN bp meds
may need to IVF
ppi
anti-nausea prn
Assessment / Plan
Assessment / Plan
# Intractable vomiting with likely hematemesis likely Chrystal-Elliott tear from possible underlying marijuana hyperemesis versus gastroparesis versus acute gastritis versus S/E from [facility]
# History of hiatal hernia
#Leukocytosis ?reactive. monitor for now .afebrile.
-Lipase 340
-CT abdomen pelvis shows no acute abnormality
-IV fluids
-Protonix 40 twice daily
-diet pending AXR
-Reglan PRN
-?S/E from [facility]
-Abdomen Xray pending to r/o SBO/Ileus
-Plan for EGD pending BP stabilization and AXR
-GI following
# Hypertensive urgency
#Primary HTN uncontrolled
-IV labetalol prn
-Continue lisinopril 40mg daily. Added procardia. May need to adjust doing
-
CAD with history of stent
-Continue statin
-cont aspirin
HLD
-Cont statin/ezetimibe
Type 2 diabetes
-Reduce Lantus from 40 to 14 units
-Hold metformin
-Insulin sliding scale. A1C 6.7
Morbid obesity due to excess calories
-affects all aspect of medical care
-sales counselor on weight loss post recovering from acute disease
Full code
DVT prophylaxis�SCDs
d/w with spouse at bedside in details on 08/06
Anticipated Discharge: > 48 hours
Subjective/Interval History
-
Date of Service: August 07, 2024
Pt with dry heaves and dry hiccups
BP was elevated overnight
Objective Data
-
Labs:
Laboratory Results
08/07/24
06:24
WBC 11.5 H
Hgb 13.9
Hct 42.2
Plt Count 211
Sodium 139
Potassium 4.1
Chloride 103
Carbon Dioxide 23
BUN 21 H
Creatinine 0.6 L
Glucose 187 H
Calcium 8.9
Total Bilirubin 0.5
AST 30
ALT 40
Alkaline Phosphatase 40
Vital Signs:
Vital Signs
Temp Pulse Resp BP Pulse Ox
98.3 F 75 20 176/98 99
08/07/24 08:00 08/07/24 08:00 08/07/24 08:00 08/07/24 09:12 08/07/24 08:00
I&O
08/06/24 08/07/24 08/08/24
06:59 06:59 06:59
Intake Total 1760 / 1760 480 / 480 350 / 350
Output Total 475 / 475 650 / 650 500 / 500
Balance 1285 / 1285 -170 / -170 -150 / -150
Physical Exam
-
General: No Apparent Distress, Morbidly Obese and Other (looks older than stated age )
HEENT: Normocephalic, Atraumatic and Moist Mucous Membranes
Respiratory: Clear to Auscultation
Cardiac: Regular Rhythm and S1/S2; Negative Murmur, Rub or Gallop
GI: Soft, Nontender, Nondistended and Normal Bowel Sounds; Negative Organomegaly
Rectal: Deferred by Provider
Musculoskeletal: No Clubbing, No Cyanosis, Edema, Right Lower Extrem and Edema, Left Lower Extrem
Skin: Warm; Negative Rash
Neuro: Awake, Alert, Oriented, AO x 3, No Motor Deficits and Nonfocal/Grossly Intact
Psych: Calm
Data Reviewed
-
Total Time Spent with Patient (in minutes): 53
[2024-08-07 12:15] LABS: Glucose - Point of Care 179 mg/dl (70-99)
[2024-08-07 17:28] LABS: Glucose - Point of Care 178 mg/dl (70-99)
[2024-08-07] MEDS: COMPAZINE 5 MG IV (20:30)
[2024-08-07 21:58] LABS: Glucose - Point of Care 165 mg/dl (70-99)
--- NOTE | 2024-08-07 23:52 | PTCARENOTE ---
Pt SBP remains >140. Pt given PRN med, see NOV. Will continue w/ tx plan.
[2024-08-08] VITALS (8 sets, daily range): BP systolic 145–195; BP diastolic 61–93
[2024-08-08] MEDS: ZOFRAN 4 MG IV ×3 (02:08→17:13)
[2024-08-08] MEDS: MORPHINE SULFATE 2 MG IV ×3 (02:23→19:36)
[2024-08-08] MEDS: TRANDATE 10 MG IV ×3 (03:03→21:22)
[2024-08-08] MEDS: PROCARDIA XL (EXTENDED RELEASE) 60 MG PO (06:04)
[2024-08-08 08:28] LABS: Glucose - Point of Care 179 mg/dl (70-99)
[2024-08-08] MEDS: NOVOLOG FLEXPEN-LOW RESISTANCE 1 UNITS SC ×2 (08:43→15:07)
[2024-08-08] MEDS: LOPRESSOR 12.5 MG PO (08:45)
[2024-08-08] MEDS: ZETIA 10 MG PO (08:46)
[2024-08-08] MEDS: PROCARDIA XL (EXTENDED RELEASE) 30 MG PO (08:46)
[2024-08-08] MEDS: ZESTRIL 40 MG PO (08:47)
[2024-08-08] MEDS: ASPIRIN ENTERIC COATED 325 MG PO (08:47)
[2024-08-08] MEDS: CRESTOR 40 MG PO (08:47)
[2024-08-08] MEDS: PROTONIX IV 40 MG IV ×2 (08:48→19:37)
[2024-08-08] MEDS: LANTUS 0.14 UNITS SC (08:49)
[2024-08-08] MEDS: NSS (PRESERVATIVE FREE) 10 ML IV ×2 (08:49→19:37)
[2024-08-08 10:03] LABS: ALT (SGPT) 34 U/L (0-50); AST (SGOT) 27 U/L (17-59); Albumin 3.9 g/dl (3.5-5.0); Alkaline Phosphatase 45 U/L (38-126); Blood Urea Nitrogen 20 mg/dl (9-20); Calcium 8.5 mg/dl (8.4-10.2); Carbon Dioxide 23 mmol/L (22-30); Chloride 101 mmol/L (98-107); Estimated Creatinine Clearance > 125 ml/min; Glucose 189 mg/dl (70-99); Potassium 3.8 mmol/L (3.5-5.1); Sodium 137 mmol/L (135-145); Total Bilirubin 0.6 mg/dl (0.2-1.3); Total Protein 6.5 g/dl (6.3-8.2); eGFR > 60.00
--- NOTE | 2024-08-08 11:43 | W.PN.GI.CBS2 ---
Addendum entered and electronically signed by Jose Patel MD 08/08/24 16:25:
correction ' The medical technical writer note was reviewed and I agree with the note '
Addendum entered and electronically signed by Jose Patel MD 08/08/24 13:28:
I saw and examined the patient.
The OPTOMETRY TEACHER's note was reviewed and I agree with the note.
Denies any abdominal pain/nausea/vomiting/diarrhea. Patient's GI symptoms like nausea can be secondary to gastroparesis (from diabetes/Mounjaro) -GES 2019 was normal
Hypertensive urgency
plan
Low-fat low fiber diet. Small frequent meals
Good glycemic control
BP control as per medical team
Patient would like to hold off on inpatient endoscopy.
If patient tolerates diet will recommend outpatient GI [id number] workup as outpatient
Original Note:
Today's Communication / Plan
-
Add low residue diet, low-fat diet
Inpatient versus outpatient endoscopy decision pending
Optimize blood pressure as per hospitalist advice
Optimize glucose control as per hospitalist advice
Follow-up with GI
Assessment / Plan
-
IMPRESSION
Patient is a 64-year-old male with past medical history of coronary artery disease, essential hypertension, insulin-dependent diabetes mellitus, hiatal hernia who presented with intractable vomiting that was not projectile, contained food particles
and had some specks of blood. Pt also noted with hiccups. There was associated lightheadedness and HTN urgency noted on admission. prior normal GE scan in 2019
08/05/24 CT A/p with IV contrast within normal limits
Patient still has blood pressure on the higher side 158/83
ASSESSMENT
Vomiting secondary to gastroenteritis/gastritis most likely, since symptoms are acute in nature and patient does not have any hematemesis or melena
Obstructive series done came back negative for any ileus/small bowel obstruction
Currently, tolerating full liquid diet with no diarrhea, vomiting, dry heaves, hiccups
[id number]
Blood pressure is still on the higher side but is improving
Insulin-dependent diabetes mellitus, blood glucose level 179
CT 2018 and 2023 with finding of chronic pancreatitis
fatty liver
Patient is on Mounjaro since February 2023, diabetes and Mounjaro could have led to gastroparesis resulting in heaves
last dose Monjaro was Saturday August 03, 2024
# Hypertensive urgency-
CAD with history of stent-Continue statin-cont aspirin
HLD-Cont statin/ezetimibe
Type 2 diabetes-hbA1C 6.7
Morbid obesity due to excess calories -on mounjaro,last dose 08/03/2024
PLAN
Advance diet to low residue low-fat diet
Patient counseled about the concerns for delayed endoscopy
Need to optimize the blood pressure and improve symptoms before the procedure
Patient given an option for outpatient endoscopy
Continue aspirin
Continue Protonix 40 mg twice daily
Manage chronic conditions as per hospitalist advise
Full code
DVT prophylaxis�SCDs
Subjective
Subjective
Date of Service: August 08, 2024
Patient tolerated full liquid diet yesterday. No vomiting or dry heaves or hiccups
Objective
Data Reviewed
Laboratory Data:
Laboratory Results
08/07/24 06:24
08/08/24 07:29
Laboratory Results
PT 14.1 Sec (11.4-14.6) 08/06/24 10:48
INR 1.06 08/06/24 10:48
Total Bilirubin 0.6 mg/dl (0.2-1.3) 08/08/24 07:29
AST 27 U/L (17-59) 08/08/24 07:29
ALT 34 U/L (0-50) 08/08/24 07:29
Alkaline Phosphatase 45 U/L (38-126) 08/08/24 07:29
Lipase 49 U/L (23-300) 08/07/24 06:24
Vital Signs and I&O:
Vital Signs
Temp Pulse Resp BP Pulse Ox
98.0 F 78 16 158/83 96
08/08/24 11:20 08/08/24 11:20 08/08/24 11:20 08/08/24 11:20 08/08/24 11:20
I&O
08/07/24 08/08/24 08/09/24
06:59 06:59 06:59
Intake Total 480 / 480 1470 / 1470
Output Total 650 / 650 500 / 500
Balance -170 / -170 970 / 970
Physical Exam
Physical Exam
HEENT: Anicteric and Moist mucous membranes
Cardiology: Normal Sinus Rhythm
Pulmonary: Clear
GI: Soft and Non Tender
Extremities: No Edema
Neuro: Non Focal
[2024-08-08 11:53] LABS: Glucose - Point of Care 193 mg/dl (70-99)
--- NOTE | 2024-08-08 11:56 | W.PN.HOSP.TC ---
Today's Communication/Plan
-
BP improving-meds adjusted
monitor diet tolerance
GI recs
Assessment / Plan
Assessment / Plan
# Intractable vomiting with likely hematemesis likely Chrystal-Elliott tear from possible underlying marijuana hyperemesis versus gastroparesis versus acute gastritis versus S/E from [facility]
# History of hiatal hernia
#Leukocytosis ?reactive. monitor for now .afebrile.
-Lipase 340
-CT abdomen pelvis shows no acute abnormality
-IV fluids can be stopped
-Protonix 40 twice daily
-tolerating clears
-Reglan PRN
-?S/E from [facility]
-Abdomen Xray negative r/o SBO/Ileus
-Plan for EGD ?TBD outpatient vs. inpatient.
-diet advanced
-GI following
# Hypertensive urgency
#Primary HTN uncontrolled
-IV labetalol prn
-Continue lisinopril 40mg daily. Added procardia dose increased 90mg.
-Toprol restarted
-Pt understand need for strict BP control. Otherwise high risk of having RI/Cardiac event/stroke etc.
CAD with history of stent
-Continue statin
-cont aspirin
-Per spouse, pt on toprol 50mg (was not on home med list) and restated today
HLD
-Cont statin/ezetimibe
Type 2 diabetes
-Reduce Lantus from 40 to 14 units
-Hold metformin
-Insulin sliding scale. A1C 6.7
-POC 179 am
Morbid obesity due to excess calories
-affects all aspect of medical care
-school counsellor on weight loss post recovering from acute disease
Full code
DVT prophylaxis�SCDs
d/w with spouse over the phone in details
Anticipated Discharge: 24 - 48 hours
Subjective/Interval History
-
Date of Service: August 08, 2024
states feeling better today
no significant nausea or vomiting or hiccups
tolerated liquids
walking around in room
denies lightheadedness or dizziness
Objective Data
-
Labs:
Laboratory Results
08/08/24
07:29
Sodium 137
Potassium 3.8
Chloride 101
Carbon Dioxide 23
BUN 20
Creatinine 0.6 L
Glucose 189 H
Calcium 8.5
Total Bilirubin 0.6
AST 27
ALT 34
Alkaline Phosphatase 45
Vital Signs:
Vital Signs
Temp Pulse Resp BP Pulse Ox
98.0 F 78 16 158/83 96
08/08/24 11:20 08/08/24 11:20 08/08/24 11:20 08/08/24 11:20 08/08/24 11:20
I&O
08/07/24 08/08/24 08/09/24
06:59 06:59 06:59
Intake Total 480 / 480 1470 / 1470
Output Total 650 / 650 500 / 500
Balance -170 / -170 970 / 970
Physical Exam
-
General: No Apparent Distress, Morbidly Obese and Other (looks older than stated age )
HEENT: Normocephalic, Atraumatic and Moist Mucous Membranes
Respiratory: Clear to Auscultation
Cardiac: Regular Rhythm and S1/S2; Negative Murmur, Rub or Gallop
GI: Soft, Nontender, Nondistended and Normal Bowel Sounds; Negative Organomegaly
Rectal: Deferred by Provider
Musculoskeletal: No Clubbing, No Cyanosis, Edema, Right Lower Extrem (trace ) and Edema, Left Lower Extrem (trace )
Skin: Warm; Negative Rash
Neuro: Awake, Alert, Oriented, AO x 3, No Motor Deficits and Nonfocal/Grossly Intact
Psych: Calm
Data Reviewed
-
Total Time Spent with Patient (in minutes): 51
--- NOTE | 2024-08-08 14:47 | CM ---
Reviewed the chart notes and spoke with the patient and spouse at the bedside. Patient back on home BP medications. CM continues to be available to patient/family and is monitoring medical plan for needs at discharge.
Plan: Discharge to home when medically stable. No needs anticipated.
[2024-08-08 15:08] LABS: Glucose - Point of Care 185 mg/dl (70-99)
[2024-08-08] MEDS: TOPROL XL 50 MG PO (15:44)
[2024-08-08] MEDS: NOVOLOG FLEXPEN-LOW RESISTANCE SC (17:47)
[2024-08-08] MEDS: REGLAN 10 MG IV (19:36)
[2024-08-08 21:26] LABS: Glucose - Point of Care 157 mg/dl (70-99)
[2024-08-08] MEDS: LANTUS 0.25 UNITS SC (21:26)
[2024-08-09] VITALS (9 sets, daily range): BP systolic 126–181; BP diastolic 69–96
[2024-08-09] MEDS: TRANDATE 10 MG IV ×3 (02:54→22:54)
[2024-08-09] MEDS: ZOFRAN 4 MG IV ×2 (03:55→15:31)
[2024-08-09] MEDS: MORPHINE SULFATE 2 MG IV ×3 (03:58→20:19)
[2024-08-09 07:49] LABS: ALT (SGPT) 30 U/L (0-50); AST (SGOT) 24 U/L (17-59); Albumin 3.8 g/dl (3.5-5.0); Alkaline Phosphatase 36 U/L (38-126); Blood Urea Nitrogen 24 mg/dl (9-20); Calcium 8.7 mg/dl (8.4-10.2); Carbon Dioxide 27 mmol/L (22-30); Chloride 100 mmol/L (98-107); Estimated Creatinine Clearance > 125 ml/min; Glucose 152 mg/dl (70-99); Potassium 4.1 mmol/L (3.5-5.1); Sodium 137 mmol/L (135-145); Total Bilirubin 0.7 mg/dl (0.2-1.3); Total Protein 6.5 g/dl (6.3-8.2); eGFR > 60.00
[2024-08-09] MEDS: NOVOLOG FLEXPEN-LOW RESISTANCE SC ×2 (08:19→17:19)
[2024-08-09] MEDS: PROCARDIA XL (EXTENDED RELEASE) 60 MG PO (08:20)
[2024-08-09] MEDS: TOPROL XL 50 MG PO (08:20)
[2024-08-09] MEDS: PROTONIX IV 40 MG IV ×2 (08:20→20:15)
[2024-08-09] MEDS: ASPIRIN ENTERIC COATED 325 MG PO (08:20)
[2024-08-09] MEDS: ZESTRIL 40 MG PO (08:20)
[2024-08-09] MEDS: ZETIA 10 MG PO (08:20)
[2024-08-09] MEDS: PROCARDIA XL (EXTENDED RELEASE) 30 MG PO (08:20)
[2024-08-09] MEDS: LANTUS 0.25 UNITS SC (08:20)
[2024-08-09] MEDS: CRESTOR 40 MG PO (08:20)
[2024-08-09] MEDS: NSS (PRESERVATIVE FREE) 10 ML IV ×2 (08:21→20:15)
[2024-08-09 08:23] LABS: Glucose - Point of Care 144 mg/dl (70-99)
[2024-08-09] MEDS: REGLAN 10 MG IV ×2 (08:26→20:19)
--- NOTE | 2024-08-09 09:23 | W.PN.GI.CBS2 ---
Today's Communication / Plan
-
EGD in am
NPO after MN
Assessment / Plan
-
IMPRESSION
Patient is a 64-year-old male with past medical history of coronary artery disease, essential hypertension, insulin-dependent diabetes mellitus, hiatal hernia who presented with intractable vomiting that was not projectile, contained food particles
and had some specks of blood. Pt also noted with hiccups. There was associated lightheadedness and HTN urgency noted on admission. prior normal GES in 2019 . last EGD 2019- [facility]
08/05/24 CT A/p with IV contrast within normal limits
Patient still has blood pressure on the higher side 158/83
ASSESSMENT
nausea/ vomiting/ abdominal pain - likely multifactorial hx of DM with likely gastroparesis / recent mounjaro ( last dose 08/03 ) / cannabis
Hypertensive urgency
plan
discussed again benefit vs risks of EGD again . patient is agreeable for EGD tomorrow
liquid diet today. NPO after MN
continue antiemetics
minimize opioid use
encourage ambulation
avoid cannabis
Total Time Spent with Patient (in minutes): 35
Subjective
Subjective
Date of Service: August 09, 2024
continues to have epigastric discomfort and nausea . able to have some food but claims not hungry
Objective
Data Reviewed
Laboratory Data:
Laboratory Results
08/07/24 06:24
08/09/24 06:43
Laboratory Results
PT 14.1 Sec (11.4-14.6) 08/06/24 10:48
INR 1.06 08/06/24 10:48
Total Bilirubin 0.7 mg/dl (0.2-1.3) 08/09/24 06:43
AST 24 U/L (17-59) 08/09/24 06:43
ALT 30 U/L (0-50) 08/09/24 06:43
Alkaline Phosphatase 36 U/L (38-126) L 08/09/24 06:43
Lipase 49 U/L (23-300) 08/07/24 06:24
Vital Signs and I&O:
Vital Signs
Temp Pulse Resp BP Pulse Ox
98.7 F 85 16 174/94 100
08/09/24 07:25 08/09/24 07:25 08/09/24 07:25 08/09/24 07:25 08/09/24 07:25
I&O
08/08/24 08/09/24 08/10/24
06:59 06:59 06:59
Intake Total 1470 / 1470 1200 / 1200
Output Total 500 / 500
Balance 970 / 970 1200 / 1200
Physical Exam
Physical Exam
GI: Soft, Non Distended and Non Tender
--- NOTE | 2024-08-09 11:24 | W.PN.HOSP.TC ---
Today's Communication/Plan
-
EGD in am
monitor BP
Cont current diet
Assessment / Plan
Assessment / Plan
# Intractable vomiting with likely hematemesis likely Chrystal-Elliott tear from possible underlying marijuana hyperemesis versus gastroparesis versus acute gastritis [facility]
# History of hiatal hernia
#Leukocytosis ?reactive. monitor for now .afebrile.
-Lipase 340
-CT abdomen pelvis shows no acute abnormality
-IV fluids can be stopped
-Protonix 40 twice daily
-tolerating clears
-Reglan PRN
-?S/E from [facility]. Last dose last tuesday. Recent increase in dose too. OP f/u with ENDO.
-Abdomen Xray negative r/o SBO/Ileus
-Plan for EGD tomm
-diet advanced
-GI following
# Hypertensive urgency
#Primary HTN uncontrolled
-IV labetalol prn
-Continue lisinopril 40mg daily. Added procardia dose increased 90mg.
-Toprol restarted 50mg daily.
-Pt understand need for strict BP control. Otherwise high risk of having HI/Cardiac event/stroke etc.
CAD with history of stent
-Continue statin
-cont aspirin
-Per spouse, pt on toprol 50mg (was not on home med list) and restarted
HLD
-Cont statin/ezetimibe
Type 2 diabetes
-Reduce Lantus from 40 to 14 units
-Hold metformin
-Insulin sliding scale. A1C 6.7
-POC 144am
Morbid obesity due to excess calories
-affects all aspect of medical care
-dependency counselor on weight loss post recovering from acute disease
Full code
DVT prophylaxis�SCDs
d/w with spouse over the phone in details on 08/08
d/w with GI
Anticipated Discharge: Within 24 hours
Subjective/Interval History
-
Date of Service: August 09, 2024
had some episode of nausea/vomiting yesterday
feeling better today
Objective Data
-
Labs:
Laboratory Results
08/09/24
06:43
Sodium 137
Potassium 4.1
Chloride 100
Carbon Dioxide 27
BUN 24 H
Creatinine 0.7
Glucose 152 H
Calcium 8.7
Total Bilirubin 0.7
AST 24
ALT 30
Alkaline Phosphatase 36 L
Vital Signs:
Vital Signs
Temp Pulse Resp BP Pulse Ox
98.7 F 85 16 174/94 100
08/09/24 07:25 08/09/24 07:25 08/09/24 07:25 08/09/24 07:25 08/09/24 07:25
I&O
08/08/24 08/09/24 08/10/24
06:59 06:59 06:59
Intake Total 1470 / 1470 1200 / 1200
Output Total 500 / 500
Balance 970 / 970 1200 / 1200
Physical Exam
-
General: No Apparent Distress, Morbidly Obese and Other (looks older than stated age. disshelved)
HEENT: Normocephalic, Atraumatic and Moist Mucous Membranes
Respiratory: Clear to Auscultation
Cardiac: Regular Rhythm and S1/S2; Negative Murmur, Rub or Gallop
GI: Soft, Nontender, Nondistended and Normal Bowel Sounds; Negative Organomegaly
Rectal: Deferred by Provider
Musculoskeletal: No Clubbing, No Cyanosis, Edema, Right Lower Extrem (trace ) and Edema, Left Lower Extrem (trace )
Skin: Warm; Negative Rash
Neuro: Awake, Alert, Oriented, AO x 3, No Motor Deficits and Nonfocal/Grossly Intact
Psych: Calm
Data Reviewed
-
Total Time Spent with Patient (in minutes): 51
[2024-08-09 11:26] LABS: Glucose - Point of Care 243 mg/dl (70-99)
[2024-08-09] MEDS: NOVOLOG FLEXPEN-LOW RESISTANCE 2 UNITS SC (11:26)
--- NOTE | 2024-08-09 14:39 | CM ---
Reviewed the chart notes and spoke with the patient at the beside. Per patient, plan is for an EGD in the morning. CM continues to be available to patient/family and is monitoring medical plan for needs at discharge.
Plan: Discharge to home when medically stable. No needs anticipated.
[2024-08-09 15:30] LABS: Glucose - Point of Care 193 mg/dl (70-99)
[2024-08-09 17:11] LABS: Glucose - Point of Care 123 mg/dl (70-99)
[2024-08-09] MEDS: COLACE 100 MG PO (21:37)
[2024-08-09] MEDS: SENOKOT 8.6 MG PO (21:37)
[2024-08-09 21:41] LABS: Glucose - Point of Care 137 mg/dl (70-99)
[2024-08-09] MEDS: LANTUS 0.14 UNITS SC (21:42)
[2024-08-10] VITALS (10 sets, daily range): BP systolic 111–177; BP diastolic 65–99
[2024-08-10] MEDS: TRANDATE 10 MG IV (03:09)
[2024-08-10] MEDS: MORPHINE SULFATE 2 MG IV (03:09)
[2024-08-10] MEDS: ZOFRAN 4 MG IV (03:10)
[2024-08-10 05:44] LABS: Glucose - Point of Care 128 mg/dl (70-99)
[2024-08-10 05:58] LABS: % Basophils 0.4 % (0-2); % Eosinophils 1.7 % (0-6); % Immature Granulocytes 0.1 % (0-0.5); % Lymphocytes 17.7 % (20.5-51.1); % Monocytes 8.9 % (1.7-9.3); % Neutrophils 71.2 % (42.2-75.2); Absolute Eosinophils 0.1 10^3/uL (0-0.7); Absolute Lymphocytes 1.3 10^3/uL (1.2-3.4); Absolute Monocytes 0.6 10^3/uL (0.1-0.6); Absolute Neutrophils 5.1 10^3/uL (1.4-6.5); Hematocrit 42.9 % (39.0-52.0); Hemoglobin 14.8 g/dL (13.0-18.0); Mean Corp Hgb Conc. 34.5 g/dL (33.0-37.0); Mean Corpuscular Hgb 30.7 pg (27.0-31.0); Mean Platelet Volume 10.4 fL (7.4-10.4); Nucleated Red Blood Cells % 0 % (-); Platelet Count 170 10^3/uL (130-400); Red Blood Cell Count 4.82 10^6/uL (4.70-6.10); Red Cell Dist. Width 12.5 % (11.5-14.5); White Blood Cell Count 7.2 10^3/uL (4.8-10.8)
[2024-08-10 06:34] LABS: ALT (SGPT) 29 U/L (0-50); AST (SGOT) 26 U/L (17-59); Albumin 3.7 g/dl (3.5-5.0); Alkaline Phosphatase 29 U/L (38-126); Blood Urea Nitrogen 20 mg/dl (9-20); Calcium 8.6 mg/dl (8.4-10.2); Carbon Dioxide 24 mmol/L (22-30); Chloride 102 mmol/L (98-107); Estimated Creatinine Clearance > 125 ml/min; Glucose 145 mg/dl (70-99); Potassium 3.9 mmol/L (3.5-5.1); Sodium 138 mmol/L (135-145); Total Bilirubin 0.7 mg/dl (0.2-1.3); Total Protein 6.5 g/dl (6.3-8.2); eGFR > 60.00
[2024-08-10 08:01] LABS: Glucose - Point of Care 181 mg/dl (70-99)
[2024-08-10] MEDS: ASPIRIN ENTERIC COATED 325 MG PO (08:35)
[2024-08-10] MEDS: COLACE 100 MG PO (08:35)
[2024-08-10] MEDS: TOPROL XL 50 MG PO (08:35)
[2024-08-10] MEDS: ZESTRIL 40 MG PO (08:35)
[2024-08-10] MEDS: PROCARDIA XL (EXTENDED RELEASE) 30 MG PO (08:35)
[2024-08-10] MEDS: PROCARDIA XL (EXTENDED RELEASE) 60 MG PO (08:35)
[2024-08-10] MEDS: ZETIA 10 MG PO (08:35)
[2024-08-10] MEDS: CRESTOR 40 MG PO (08:35)
[2024-08-10] MEDS: LANTUS SC (08:36)
[2024-08-10] MEDS: NSS (PRESERVATIVE FREE) 10 ML IV (08:36)
[2024-08-10] MEDS: PROTONIX IV 40 MG IV (08:36)
[2024-08-10 11:03] LABS: Glucose - Point of Care 139 mg/dl (70-99)
--- NOTE | 2024-08-10 11:08 | W.PN.HOSP.TC ---
Today's Communication/Plan
-
monitor for diet tolerance
Monitor BP
Assessment / Plan
Assessment / Plan
# Intractable vomiting with likely hematemesis likely underlying marijuana hyperemesis versus gastroparesis versus S/E from [facility]
# History of hiatal hernia
#Leukocytosis ?reactive. monitor for now .afebrile.
-Lipase 340
-CT abdomen pelvis shows no acute abnormality
-IV fluids can be stopped
-Protonix 40 twice daily
-tolerating clears
-Reglan PRN
-?S/E from [facility]. Last dose last tuesday. Recent increase in dose too. OP f/u with ENDO.
-Abdomen Xray negative r/o SBO/Ileus
-Plan for EGD today -esophagus was normal. Mildly erythematous mucosa was found in the gastric antrum. Biopsies were taken. Bilious fluid was found in the gastric body. Duodenum was normal. Patient with a follow-up biopsy with gastroenterology.
-diet advanced to low residue
-GI following
# Hypertensive urgency
#Primary HTN uncontrolled
-IV labetalol prn
-Continue lisinopril 40mg daily. Added procardia dose increased 90mg.
-Toprol restarted 50mg daily. May need to start chlorthalidone if needed
-Pt understand need for strict BP control. Otherwise high risk of having CA/Cardiac event/stroke etc.
CAD with history of stent
-Continue statin
-cont aspirin
-Per spouse, pt on toprol 50mg (was not on home med list) and restarted
HLD
-Cont statin/ezetimibe
Type 2 diabetes
-restart lantus home dose
-Hold metformin
-Insulin sliding scale. A1C 6.7
Morbid obesity due to excess calories
-affects all aspect of medical care
-cancer genetic counselor on weight loss post recovering from acute disease
Full code
DVT prophylaxis�SCDs
d/w with spouse over the phone in details on 08/08
d/w with GI
More than 30 minutes spent in discharge including
Final examination of the patient
Summarizing hospital stay
Instructions for continuing care to all relevant caregivers
Preparation of discharge records, prescriptions, and referral forms
Total time spent (in minutes): 52
Anticipated Discharge: Today
Subjective/Interval History
-
Date of Service: August 10, 2024
some nausea earlier
Objective Data
-
Labs:
Laboratory Results
08/10/24
05:39
WBC 7.2
Hgb 14.8
Hct 42.9
Plt Count 170
Sodium 138
Potassium 3.9
Chloride 102
Carbon Dioxide 24
BUN 20
Creatinine 0.7
Glucose 145 H
Calcium 8.6
Total Bilirubin 0.7
AST 26
ALT 29
Alkaline Phosphatase 29 L
Vital Signs:
Vital Signs
Temp Pulse Resp BP Pulse Ox
98.1 F 74 15 124/68 97
08/10/24 07:00 08/10/24 11:00 08/10/24 11:00 08/10/24 11:00 08/10/24 11:00
I&O
08/09/24 08/10/24 08/11/24
06:59 06:59 06:59
Intake Total 1200 / 1200 1440 / 1440
Output Total 120 / 120
Balance 1200 / 1200 1320 / 1320
Physical Exam
-
General: No Apparent Distress, Morbidly Obese and Other (looks older than stated age. disshelved)
HEENT: Normocephalic, Atraumatic and Moist Mucous Membranes
Respiratory: Clear to Auscultation
Cardiac: Regular Rhythm and S1/S2; Negative Murmur, Rub or Gallop
GI: Soft, Nontender, Nondistended and Normal Bowel Sounds; Negative Organomegaly
Rectal: Deferred by Provider
Musculoskeletal: No Clubbing, No Cyanosis, Edema, Right Lower Extrem (trace ) and Edema, Left Lower Extrem (trace )
Skin: Warm; Negative Rash
Neuro: Awake, Alert, Oriented, AO x 3, No Motor Deficits and Nonfocal/Grossly Intact
Psych: Calm
--- NOTE | 2024-08-10 11:50 | PTCARENOTE ---
Patient received from GI lab. VSS. LR diet ordered.
--- NOTE | 2024-08-10 11:56 | CM ---
Reviewed the chart notes and spoke with the patient at the bedside. Diet upgraded to low residual. CM continues to be available to patient/family and is monitoring medical plan for needs at discharge.
Plan: Discharge to home when medically stable. No anticipated needs.
--- NOTE | 2024-08-10 13:36 | W.DCSUMMARY ---
Discharge Summary
Discharge Data
Date of Admission: 08/05/24
Date of Discharge: 08/10/24
-
Pending Results: No
Hospital Course
64-year-old male past medical history of primary hypertension, CAD status post stent, hyperlipidemia, diabetes mellitus insulin-dependent, morbid obesity excess calories, cannabis usage, who is presented with complaints of nausea vomiting. Patient
underwent CT abdomen pelvis which showed no acute abnormality. Patient was started on aggressive IV fluid resuscitation. Lipase was 340. Patient was started on PPI. Patient underwent abdominal x-ray which is negative bowel obstruction or ileus.
Patient was also found to have severely uncontrolled blood pressure. Patient was continued on lisinopril and Procardia was started. After discussion with spouse patient was found to also be taking Toprol which was also restarted. Pressure slowly
started to improve and prior to discharge blood pressure was 114/88. Patient was also using cannabis at home and taking Mounjaro which in combination caused patient GI symptoms. Patient underwent endoscopy esophagus was normal. Mildly
erythematous mucosa was found in the gastric antrum. Biopsies were taken. Bilious fluid was found in the gastric body. Duodenum was normal. Patient with a follow-up biopsy with gastroenterology. Patient diet was advanced to low residue which he
was tolerating it. Recommend to follow-up outpatient with gastroenterology and primary doctor. Recommended to stop taking Mounjaro and using cannabis.
Discharge Plan
-
Patient Disposition: Home (Routine Discharge)
Discharge Diagnosis/Procedures: Nausea and vomiting likely secondary to cannabis usage and due to Mounjaro
Primary hypertension uncontrolled
Hypertension urgency
Condition: Fair
Diet: Diabetic, Carb Controlled
Activity: As tolerated
Driving Restrictions: No driving for 24 hours
Instructions: High blood pressure in adults, Controlling your blood pressure through lifestyle
Referrals:
Shira Kebede MD [Active] - in three to four weeks (4 weeks for N/V and follow up the EGD biopsy results. )
Edgardo Power DO [Family Provider] - in less than 1 week
Prescriptions:
New
pantoprazole [Protonix] 40 mg tablet,delayed release (DR/EC)
40 mg PO DAILY Qty: 30 0RF
nifedipine [Procardia XL] 90 mg tablet extended release 24hr
90 mg PO DAILY Qty: 30 0RF
Continued
aspirin 325 MG tablet,delayed release (DR/EC)
325 mg PO DAILY
Patient Comments:
takes ecotrin
metformin 1,000 MG tablet
1,000 mg PO BID
Patient Comments:
NOTEtoday 06/02/2013 --pt had ct with iv dye---will need to hold for 2 days
rosuvastatin 20 MG tablet
40 mg PO DAILY
lisinopril 40 MG tablet
40 mg PO DAILY Qty: 30 0RF
Levemir FlexTouch U100 Insulin 300 UNIT/3 ML insulin pen
42 unit SC BID Qty: 30 0RF
Humalog Pen
1 dose SC AC
Rx Instructions:
sliding scale
ezetimibe
10 mg PO DAILY
metoprolol succinate [Toprol XL] 50 mg Tablet Extended Release 24 Hr
50 mg PO DAILY
Discontinued
Mounjaro
7.5 mg SC WEEKLY
Rx Instructions:
saturdays
Discharge Orders:
Discharge Patient (As Directed); Ordered 08/10/24
Ordered By: Daniel Montes
Discharge Date and Time
Discharge Date/Time: 08/10/24 15:41
Print Language: ANDORRAN
== END 2024-08-10 15:41 | disposition home or self-care (01) | DRG 896 ==
LOC: 2 NORTH 18:02
PROVIDERS: Internal Medicine Gastroenterology; Physician Assistant; ADMITTING PHYSICIAN Hospitalist; ATTENDING PHYSICIAN Hospitalist; CONSULT PHYSICIAN Internal Medicine; EMERGENCY PHYSICIAN Emergency Medicine; FAMILY PHYSICIAN Family Medicine
PROC: 0DB98ZX Excision of Duodenum, Via Natural or Artificial Opening Endoscopic, Diagnostic (ICD-10-PCS; 2024-08-10)
PROC: 0DB68ZX Excision of Stomach, Via Natural or Artificial Opening Endoscopic, Diagnostic (ICD-10-PCS; 2024-08-10)
DX: F12.19 Cannabis abuse with unspecified cannabis-induced disorder (principal); K22.6 Gastro-esophageal laceration-hemorrhage syndrome; K56.609 Unspecified intestinal obstruction, unspecified as to partial versus complete obstruction; K92.0 Hematemesis; K29.70 Gastritis, unspecified, without bleeding; E78.00 Pure hypercholesterolemia, unspecified; I25.10 Atherosclerotic heart disease of native coronary artery without angina pectoris; Z95.5 Presence of coronary angioplasty implant and graft; E66.01 Morbid (severe) obesity due to excess calories; Z68.37 Body mass index [BMI] 37.0-37.9, adult; I10 Essential (primary) hypertension; I16.0 Hypertensive urgency; K31.89 Other diseases of stomach and duodenum; E11.43 Type 2 diabetes mellitus with diabetic autonomic (poly)neuropathy
CPT/HCPCS: 88305; 71045; 74022; 74177; 80053; 82962; 83036; 83690; 84484; 85025; 85610; 88342; 93005; 96361; 96374; 96375; 99285; Q9967

== ENCOUNTER → 2024-11-13 13:39 | Outpatient (REF) | payer BC, SELFPAY | LOC: PET 13:39 | PROVIDERS: ATTENDING PHYSICIAN Internal Medicine Cardiovascular Disease | DX: I25.2 Old myocardial infarction (principal) | CPT/HCPCS: 78431; A9555; J2785 ==

== ENCOUNTER → 2025-06-06 09:43 | Outpatient (REF) | payer BC, SELFPAY | LOC: WOUND 09:43 | PROVIDERS: ATTENDING PHYSICIAN Surgery; FAMILY PHYSICIAN Family Medicine | DX: E11.621 Type 2 diabetes mellitus with foot ulcer (principal); L97.522 Non-pressure chronic ulcer of other part of left foot with fat layer exposed; L97.512 Non-pressure chronic ulcer of other part of right foot with fat layer exposed; I87.2 Venous insufficiency (chronic) (peripheral); E11.51 Type 2 diabetes mellitus with diabetic peripheral angiopathy without gangrene | CPT/HCPCS: 11042 ==

== ENCOUNTER → 2025-06-10 08:20 | Outpatient (REF) | payer BC, SELFPAY | LOC: RAD 08:20 | PROVIDERS: ATTENDING PHYSICIAN Surgery; FAMILY PHYSICIAN Family Medicine | DX: E11.621 Type 2 diabetes mellitus with foot ulcer (principal); I73.9 Peripheral vascular disease, unspecified | CPT/HCPCS: 93922 ==

== ENCOUNTER → 2025-06-11 13:52 | Outpatient (REF) | payer BC, SELFPAY | LOC: RAD 13:52 | PROVIDERS: ATTENDING PHYSICIAN Surgery; FAMILY PHYSICIAN Family Medicine | DX: E11.621 Type 2 diabetes mellitus with foot ulcer (principal); I87.2 Venous insufficiency (chronic) (peripheral) | CPT/HCPCS: 93970 ==

== ENCOUNTER → 2025-06-13 09:03 | Outpatient (REF) | payer BC, SELFPAY | LOC: WOUND 09:03 | PROVIDERS: ATTENDING PHYSICIAN Surgery; FAMILY PHYSICIAN Family Medicine | DX: E11.621 Type 2 diabetes mellitus with foot ulcer (principal); L97.522 Non-pressure chronic ulcer of other part of left foot with fat layer exposed; L97.512 Non-pressure chronic ulcer of other part of right foot with fat layer exposed; I73.9 Peripheral vascular disease, unspecified; I87.2 Venous insufficiency (chronic) (peripheral); E11.65 Type 2 diabetes mellitus with hyperglycemia; I25.10 Atherosclerotic heart disease of native coronary artery without angina pectoris | CPT/HCPCS: 99213 ==